=== PATIENT | male | born 1965 | race Caucasian/White ===

== ENCOUNTER 2018-03-10 13:31 | Emergency (ER) | payer OTHER ==
[~2018-03-10] VITALS: Ht 182.9 cm; Wt 136.4 kg
[2018-03-10 14:27] VITALS: BP 135/79
== END 2018-03-10 14:31 | disposition home or self-care (01) ==
LOC: EMS 13:35
DX: B02.9 Zoster without complications (principal); F17.210 Nicotine dependence, cigarettes, uncomplicated
CPT/HCPCS: 99406

== ENCOUNTER 2019-05-07 09:07 | Inpatient (IN) | payer OTHER ==
[~2019-05-07] VITALS: Ht 182.9 cm; Wt 127.3 kg
[2019-05-07] MEDS ORDERED: ACETAMINOPHEN 500 MG TABLET PO ONE (10:45)
[2019-05-07] MEDS ORDERED: SODIUM CHLORIDE 0.9% 1,000 ML IV ONE (10:45)
[2019-05-07] MEDS ORDERED: MORPHINE SULFATE 2 MG/ML SYRINGE IVP ONE (10:45)
[2019-05-07 11:28] LABS: BASOPHILS % (AUTO) 0.6 % (0.0-2.0); EOSINOPHILS % (AUTO) 0.6 % (1.0-6.0); HEMATOCRIT 49.3 % (41-53); HEMOGLOBIN 16.6 g/dL (13.5-17.5); LYMPHOCYTES # (AUTO) 2.1 K/uL (1.0-4.8); LYMPHOCYTES % (AUTO) 25.8 % (22.0-44.0); MEAN CORPUSCULAR HEMOGLOBIN 30.4 pg (26.0-34.0); MEAN CORPUSCULAR HGB CONC 33.7 G/dL (31.0-37.0); MEAN CORPUSCULAR VOLUME 90 fL (80-100); MONOCYTES # (AUTO) 0.6 K/uL (0.1-1.0); MONOCYTES % (AUTO) 6.9 % (2.0-9.0); NEUTROPHILS # (AUTO) 5.4 K/uL (1.8-7.7); NEUTROPHILS % (AUTO) 66.1 % (40.0-70.0); PLATELET COUNT (AUTO) 203 K/uL (150-450); RED BLOOD CELL COUNT(AUTO) 5.45 MIL/uL (4.50-5.90); RED CELL DISTRIBUTION WIDTH 13.2 % (11.5-14.5)
[2019-05-07 11:39] LABS: ANION GAP 6 mmol/L (8-16); CALCIUM, TOTAL 8.7 mg/dL (8.8-10.5); CARBON DIOXIDE 29 mmol/L (22-29); CHLORIDE 102 mmol/L (98-107); CREATININE 0.95 mg/dL (0.60-1.30); GLOMERULAR FILTR. RATE CALC > 60 mL/min (>60); GLUCOSE,RANDOM 147 mg/dL (70-110); POTASSIUM 3.8 mmol/L (3.5-5.1); SODIUM SERUM 137 mmol/L (136-145); UREA NITROGEN, BLOOD 10 mg/dL (7-18)
[2019-05-07 11:45] LABS: ALANINE AMINOTRANSFERASE 29 U/L (12-78); ALBUMIN 3.4 g/dL (3.4-5.0); ALKALINE PHOSPHATASE 116 U/L (46-116); ASPARTATE AMINOTRANSFERASE 16 U/L (15-37); BILIRUBIN,TOTAL 0.3 mg/dL (0.1-1.0); LIPASE 97 U/L (73-393); TOTAL PROTEIN, SERUM 7.2 g/dL (6.4-8.2)
[2019-05-07] MEDS ORDERED: SODIUM CHLORIDE 0.9% 100 ML ONE (12:21)
[2019-05-07] MEDS ORDERED: IOVERSOL 350 MG/ML 150 ML VIAL ONE (12:21)
[2019-05-07] MEDS ORDERED: PANTOPRAZOLE SODIUM 40 MG/VIAL IVP ONE (13:15)
[2019-05-07] MEDS ORDERED: ONDANSETRON HCL 4 MG/2 ML VIAL IVP PRN (14:00)
[2019-05-07] MEDS ORDERED: ACETAMINOPHEN 325 MG TABLET PO PRN ×2 (14:00)
[2019-05-07] MEDS ORDERED: 0.9% SODIUM CHLORIDE 10 ML SYRINGE IVP PRN (14:00)
[2019-05-07] MEDS ORDERED: PEG 3350/NA SULF,BICARB,CL/KCL 4000 ML SOLUTION PO ONE (15:00)
[2019-05-07] MEDS: PANTOPRAZOLE SODIUM 80 MG in SODIUM CHLORIDE 0.9% 100 ML IV SCH (15:23)
[2019-05-07 17:38] VITALS: BP 134/58
[2019-05-07] MEDS: DOCUSATE SODIUM 100 MG CAPSULE PO SCH (20:08)
[2019-05-07 20:19] VITALS: BP 131/82
[2019-05-07] MEDS ORDERED: PANTOPRAZOLE SODIUM 40 MG/VIAL IVP SCH (21:00)
[2019-05-07 23:40] VITALS: BP 131/98
[2019-05-08] MEDS: PANTOPRAZOLE SODIUM 80 MG in SODIUM CHLORIDE 0.9% 100 ML IV SCH (00:07)
[2019-05-08 04:53] VITALS: BP 134/86
[2019-05-08 06:07] LABS: BASOPHILS % (AUTO) 0.8 % (0.0-2.0); EOSINOPHILS % (AUTO) 0.9 % (1.0-6.0); HEMATOCRIT 47.2 % (41-53); HEMOGLOBIN 16.1 g/dL (13.5-17.5); LYMPHOCYTES # (AUTO) 1.9 K/uL (1.0-4.8); LYMPHOCYTES % (AUTO) 23.5 % (22.0-44.0); MEAN CORPUSCULAR HEMOGLOBIN 30.6 pg (26.0-34.0); MEAN CORPUSCULAR VOLUME 90 fL (80-100); MONOCYTES # (AUTO) 0.7 K/uL (0.1-1.0); MONOCYTES % (AUTO) 8.7 % (2.0-9.0); NEUTROPHILS # (AUTO) 5.4 K/uL (1.8-7.7); NEUTROPHILS % (AUTO) 66.1 % (40.0-70.0); PLATELET COUNT (AUTO) 209 K/uL (150-450); RED BLOOD CELL COUNT(AUTO) 5.25 MIL/uL (4.50-5.90); RED CELL DISTRIBUTION WIDTH 12.9 % (11.5-14.5)
[2019-05-08 06:25] LABS: ALANINE AMINOTRANSFERASE 34 U/L (12-78); ALBUMIN 3.4 g/dL (3.4-5.0); ALKALINE PHOSPHATASE 110 U/L (46-116); ANION GAP 5 mmol/L (8-16); ASPARTATE AMINOTRANSFERASE 15 U/L (15-37); BILIRUBIN,TOTAL 0.4 mg/dL (0.1-1.0); CALCIUM, TOTAL 8.6 mg/dL (8.8-10.5); CARBON DIOXIDE 32 mmol/L (22-29); CHLORIDE 103 mmol/L (98-107); CREATININE 0.97 mg/dL (0.60-1.30); GLOMERULAR FILTR. RATE CALC > 60 mL/min (>60); GLUCOSE,RANDOM 118 mg/dL (70-110); POTASSIUM 3.8 mmol/L (3.5-5.1); SODIUM SERUM 140 mmol/L (136-145); TOTAL PROTEIN, SERUM 6.9 g/dL (6.4-8.2); UREA NITROGEN, BLOOD 7 mg/dL (7-18)
[2019-05-08 07:35] VITALS: BP 135/84
[2019-05-08] MEDS: DOCUSATE SODIUM 100 MG CAPSULE PO SCH ×2 (09:00→20:58)
[2019-05-08] MEDS ORDERED: SODIUM CHLORIDE 0.9% 1,000 ML IV SCH (11:00)
[2019-05-08] MEDS ORDERED: MIDAZOLAM HCL 5 MG/ML VIAL ONE (11:47)
[2019-05-08] MEDS ORDERED: FentaNYL CITRATE-PF 100 MCG/2 ML VIAL ONE (11:47)
[2019-05-08 13:51] VITALS: BP 133/81
[2019-05-08 15:10] VITALS: BP 154/77
[2019-05-08] MEDS: HYDROCORTISONE 2.5% 30 GM CREAM TP SCH ×2 (15:50→20:59)
[2019-05-08 19:22] VITALS: BP 131/88
[2019-05-09 01:25] VITALS: BP 144/88
[2019-05-09 04:42] VITALS: BP 142/81
[2019-05-09 07:37] VITALS: BP 143/90
[2019-05-09] MEDS: DOCUSATE SODIUM 100 MG CAPSULE PO SCH ×2 (08:28→20:35)
[2019-05-09] MEDS: HYDROCORTISONE 2.5% 30 GM CREAM TP SCH ×3 (08:28→20:36)
[2019-05-09] MEDS: BISACODYL 5 MG EC TABLET PO SCH (12:30)
[2019-05-09 13:11] LABS: GLUCOMETER DEV NAME(LOC) 6N.1; GLUCOSE,POINT OF CARE 123 MG/DL (70-110)
[2019-05-09 15:40] VITALS: BP 142/80
[2019-05-09] MEDS ORDERED: DOCU-275 PO (16:21)
[2019-05-09] MEDS ORDERED: HYDR30CR3 TP (16:21)
[2019-05-09] MEDS ORDERED: BISA-151 PO (16:21)
[2019-05-09 19:34] VITALS: BP 116/69
[2019-05-10 00:07] VITALS: BP 168/100
[2019-05-10 04:20] VITALS: BP 135/70
[2019-05-10 07:20] VITALS: BP 128/62
[2019-05-10] MEDS: DOCUSATE SODIUM 100 MG CAPSULE PO SCH (08:01)
[2019-05-10] MEDS: HYDROCORTISONE 2.5% 30 GM CREAM TP SCH (08:02)
[2019-05-10] MEDS: BISACODYL 5 MG EC TABLET PO SCH (08:02)
[2019-05-10 11:40] VITALS: BP 119/91
== END 2019-05-10 15:58 | disposition home or self-care (01) | DRG 244 ==
LOC: EMS 09:08 → 4E 15:53
PROVIDERS: ADMIT Internal Medicine; ATTEND Internal Medicine
PROC: 0DJD8ZZ Inspection of Lower Intestinal Tract, Via Natural or Artificial Opening Endoscopic (ICD-10-PCS; principal; 2019-05-08 12:30)
DX: K57.31 Diverticulosis of large intestine without perforation or abscess with bleeding (principal); F17.210 Nicotine dependence, cigarettes, uncomplicated; J44.9 Chronic obstructive pulmonary disease, unspecified; K92.1 Melena; K60.2 Anal fissure, unspecified; K59.00 Constipation, unspecified; N50.811 Right testicular pain
CPT/HCPCS: 74177; 76870; 86850; 86900; 86901; C9113; G0378; J2250; J2270; J3010; J7030; J7050

== ENCOUNTER 2019-10-18 11:18 | Emergency (ER) | payer OTHER ==
[~2019-10-18] VITALS: Ht 177.8 cm; Wt 118.2 kg
[~2019-10-18 11:18] MED LIST: BISA-151 PO; DOCU-275 PO; HYDR30CR3 TP
[2019-10-18 14:30] LABS: BASOPHILS % (AUTO) 0.8 % (0.0-2.0); EOSINOPHILS % (AUTO) 1.7 % (1.0-6.0); HEMATOCRIT 49.6 % (41-53); HEMOGLOBIN 16.6 g/dL (13.5-17.5); LYMPHOCYTES % (AUTO) 23.2 % (22.0-44.0); MEAN CORPUSCULAR HEMOGLOBIN 30.1 pg (26.0-34.0); MEAN CORPUSCULAR HGB CONC 33.5 G/dL (31.0-37.0); MEAN CORPUSCULAR VOLUME 90 fL (80-100); MONOCYTES # (AUTO) 0.8 K/uL (0.1-1.0); MONOCYTES % (AUTO) 9.1 % (2.0-9.0); NEUTROPHILS # (AUTO) 5.6 K/uL (1.8-7.7); NEUTROPHILS % (AUTO) 65.2 % (40.0-70.0); PLATELET COUNT (AUTO) 207 K/uL (150-450); RED BLOOD CELL COUNT(AUTO) 5.53 MIL/uL (4.50-5.90); RED CELL DISTRIBUTION WIDTH 13.2 % (11.5-14.5)
[2019-10-18] MEDS ORDERED: GADOBUTROL 1 MMOL/ML 10 ML VIAL IVP ONE (14:41)
[2019-10-18 14:45] LABS: CALCIUM, TOTAL 9.1 mg/dL (8.8-10.5); CREATININE 1.26 mg/dL (0.60-1.30); POTASSIUM 4.1 mmol/L (3.5-5.1)
[2019-10-18 14:51] LABS: ALBUMIN 3.4 g/dL (3.4-5.0); BILIRUBIN,TOTAL 0.3 mg/dL (0.1-1.0); C-REACTIVE PROTEIN QUANT 0.49 mg/dL (0.00-0.30); TOTAL PROTEIN, SERUM 7.8 g/dL (6.4-8.2)
[2019-10-18 15:53] LABS: ERYTHROCYTE SEDIMENTATION RATE 2 MM/HR (0-15)
[2019-10-18 18:54] VITALS: BP 121/67
== END 2019-10-18 19:07 | disposition home or self-care (01) ==
LOC: EMS 11:21
DX: M79.604 Pain in right leg (principal); M79.605 Pain in left leg; R20.0 Anesthesia of skin; J45.909 Unspecified asthma, uncomplicated; F17.210 Nicotine dependence, cigarettes, uncomplicated
CPT/HCPCS: 72158; 80053; 82550; 85025; 85651; 86140; 93925; 93970; 99285; A9585